=== PATIENT | male | born 1990 | race Caucasian/White ===

== ENCOUNTER 2017-08-27 21:16 | Observation (INO) | payer OTHER ==
[~2017-08-27] VITALS: Ht 188 cm; Wt 83.9 kg
[2017-08-27 21:27] VITALS: BP 134/79; PULSE 117; RESP 12; O2SAT 99
[2017-08-27] MEDS ORDERED: SODIUM CHLOR 0.9% 1000 ML INJ 1,000 ML IV ONE ×2 (21:45→22:45)
[2017-08-27] MEDS ORDERED: TETANUS/DIPHTHERIA TOXOID ADULT 0.5 ML VIAL IM ONE (22:15)
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
--- NOTE | 2017-08-27 22:57 | PD ---
Physical Exam Time Seen by Provider: 22:55 Narrative I was asked to repair the lower lip laceration. Data Data Last Documented VS Vital Signs Date Time Temp Pulse Resp B/P (MAP) Pulse Ox O2 Delivery O2 Flow Rate FiO2 08/27/17 21:30 99 Room Air 08/27/17 21:27 117 12 134/79 (97) Orders Orders Ct Brain W/O Iv Contrast(Rout) (08/27/17 ) Ct Cerv Spine W/O Contrast (08/27/17 ) Ct Facial Bones W/O Iv Cont (08/27/17 ) Complete Blood Count With Diff (08/27/17 21:41) Comprehensive Metabolic Panel (08/27/17 21:41) Troponin I (08/27/17 21:41) Chest, Single Ap (08/27/17 ) Pelvis, Ap Only (Routine) (08/27/17 ) Alcohol (Ethanol) (08/27/17 21:41) Drug Screen, Random Urine (08/27/17 21:41) Sodium Chlor 0.9% 1000 Ml Inj (Ns 1000 M (08/27/17 21:45) Tetanus/Diphtheria Tox Adult (Tetanus/Di (08/27/17 22:15) Sodium Chlor 0.9% 1000 Ml Inj (Ns 1000 M (08/27/17 22:45) MDM Supervised Visit with YAMILETH: No Narrative Course I was asked to repair the lower lip laceration. See my procedure note for laceration repair. Procedures Procedure Narrative LACERATION LOCATION: Mid/right lower lip LENGTH: One and half centimeters NUMBER OF STITCHES/ARLEN: 4 simple interrupted sutures REPAIR: The area of the laceration was prepped with Betadine and sterilely draped. The laceration was infiltrated with 1% lidocaine. The wound was copiously irrigated and explored without evidence of foreign body, tendon injury or neurovascular injury. The wound was closed using 5-0 Vicryl. This was a single layer repair. A sterile dressing was applied. The patient was advised to keep the dressing clean and dry. Patient tolerated the procedure well. Scripts No Active Prescriptions or Reported Meds April Gutierrez Aug 27, 2017 22:57
[2017-08-27 23:19] LABS: AUTOMATED NEUTROPHIL # 12.5 TH/MM3 (1.8-7.7); BASOPHIL % 0.2 % (0.0-2.0); EOSINOPHIL % 0.2 % (0.0-4.0); HEMATOCRIT 46.1 % (39.0-51.0); HEMO FLAGS DIFF FINAL; LYMPH % 19.5 % (9.0-44.0); LYMPHOCYTE # 3.3 TH/MM3 (1.0-4.8); MEAN CELL VOLUME 92.5 FL (80.0-100.0); MEAN CORPUSCULAR HEMOGLOBIN 31.3 PG (27.0-34.0); MEAN CORPUSCULAR HGB CONC 33.8 % (32.0-36.0); NEUT % 74.1 % (16.0-70.0); PLATELET COUNT 276 TH/MM3 (150-450); RED BLOOD COUNT 4.98 MIL/MM3 (4.50-5.90); RED CELL DISTRIBUTION WIDTH 12.5 % (11.6-17.2); WHITE BLOOD COUNT 16.8 TH/MM3 (4.0-11.0)
[2017-08-27 23:20] LABS: ANION GAP 14 MEQ/L (5-15); AST (GOT) 24 U/L (15-37); BICARBONATE 22.2 MEQ/L (21.0-32.0); BLOOD UREA NITROGEN 15 MG/DL (7-18); CHLORIDE 103 MEQ/L (98-107); GLOMERULAR FILTRATION RATE 75 ML/MIN (>89); POTASSIUM 3.4 MEQ/L (3.5-5.1); SODIUM (NA) 139 MEQ/L (136-145)
[2017-08-27 23:25] LABS: ALCOHOL LESS THAN 3 MG/DL (0-5); ALKALINE PHOSPHATASE 83 U/L (45-117); ALT (GPT) 26 U/L (12-78); TOTAL BILIRUBIN ADULT 0.5 MG/DL (0.2-1.0)
[2017-08-27] MEDS ORDERED: DILTIAZEM HCL 25 MG/5 ML VIAL IV PUSH ONE (23:30)
[2017-08-28] VITALS (7 sets, daily range): BP systolic 103–125; BP diastolic 53–73; PULSE 68–115; RESP 15–18; TEMP 97.7–98.5; O2SAT 98–100
[2017-08-28] MEDS ORDERED: DILTIAZEM HCL 25 MG/5 ML VIAL IV PUSH PRN (01:15)
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
[2017-08-28] MEDS ORDERED: SODIUM CHLOR 0.9% 1000 ML INJ 1,000 ML IV SCH (01:59)
[2017-08-28] MEDS ORDERED: MAGNESIUM HYDROXIDE SUSP 30 ML CUP PO PRN (02:00)
[2017-08-28] MEDS ORDERED: BISACODYL 10 MG SUPP RECTAL PRN (02:00)
[2017-08-28] MEDS ORDERED: METOPROLOL TARTRATE 25 MG TAB PO ONE (02:00)
[2017-08-28] MEDS ORDERED: MORPHINE SULFATE 4 MG/ML INJ IV PUSH PRN (02:00)
[2017-08-28] MEDS ORDERED: ACETAMINOPHEN/HYDROcodone 325 MG/5 MG TAB PO PRN (02:00)
[2017-08-28] MEDS ORDERED: SODIUM CHLORIDE 0.9% FLUSH 10 ML FLUSH IV FLUSH PRN (02:00)
[2017-08-28] MEDS ORDERED: SENNOSIDES 8.6 MG TAB PO PRN (02:00)
[2017-08-28] MEDS ORDERED: ONDANSETRON HCL 4 MG/2 ML VIAL IVP PRN (02:00)
[2017-08-28] MEDS ORDERED: ACETAMINOPHEN 325 MG TAB PO PRN (02:00)
[2017-08-28] MEDS ORDERED: LACTULOSE SYRUP 20 GM/30 ML CUP PO PRN (02:00)
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
[2017-08-28] MEDS: POTASSIUM CHLORIDE 20 MEQ CONTROLLED RELEASE TAB PO ONE ×2 (03:17→03:23)
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
[2017-08-28 08:21] LABS: AUTOMATED NEUTROPHIL # 9.1 TH/MM3 (1.8-7.7); BASOPHIL % 0.3 % (0.0-2.0); HEMATOCRIT 45.5 % (39.0-51.0); HEMO FLAGS DIFF FINAL; LYMPH % 23.8 % (9.0-44.0); LYMPHOCYTE # 3.1 TH/MM3 (1.0-4.8); MEAN CORPUSCULAR HGB CONC 34.4 % (32.0-36.0); MONO % 6.5 % (0.0-8.0); NEUT % 69.4 % (16.0-70.0); PLATELET COUNT 246 TH/MM3 (150-450); RED BLOOD COUNT 4.89 MIL/MM3 (4.50-5.90); RED CELL DISTRIBUTION WIDTH 12.3 % (11.6-17.2); WHITE BLOOD COUNT 13.2 TH/MM3 (4.0-11.0)
[2017-08-28 08:33] LABS: ANION GAP 7 MEQ/L (5-15); AST (GOT) 25 U/L (15-37); BICARBONATE 25.3 MEQ/L (21.0-32.0); BLOOD UREA NITROGEN 8 MG/DL (7-18); CHLORIDE 106 MEQ/L (98-107); GLOMERULAR FILTRATION RATE 107 ML/MIN (>89); POTASSIUM 4.1 MEQ/L (3.5-5.1); SODIUM (NA) 138 MEQ/L (136-145)
[2017-08-28 08:35] LABS: ALT (GPT) 24 U/L (12-78)
[2017-08-28 08:44] LABS: ALKALINE PHOSPHATASE 70 U/L (45-117); TOTAL BILIRUBIN ADULT 0.7 MG/DL (0.2-1.0)
[2017-08-28] MEDS ORDERED: DOCUSATE SODIUM 50 MG/SENNA 8.6 MG TAB PO SCH (09:00)
[2017-08-28] MEDS ORDERED: METOPROLOL TARTRATE 25 MG TAB PO SCH (09:00)
[2017-08-28] MEDS ORDERED: SODIUM CHLORIDE 0.9% FLUSH 10 ML FLUSH IV FLUSH SCH (09:00)
--- NOTE | 2017-08-28 14:04 | PD.AMA ---
Against Medical Advice Note Discharge Disposition: Against Medical Advice Pt Condition on Discharge: Guarded AMA Statement Patient Andrey Andrew has decided to leave the hospital against medical advice. This patient has the capacity to refuse care and understands the risks of leaving, including permanent disability and/or , and has had an opportunity to ask questions about his condition. The patient has been informed that he may return for care at any time, and follow up has been arranged/ advised. Tristan Marcano MD Aug 28, 2017 14:04
--- NOTE | 2017-08-28 14:41 | EKG ---
Date Performed: 08/28/2017 Time Performed: 00:47:24 PTAGE: 26 years EKG: ATRIAL FIBRILLATION WITH RAPID VENTRICULAR RESPONSE ABNORMAL RHYTHM ECG PREVIOUS TRACING : 08/27/2017 21.30 Compared to prior tracing no significant change DOCTOR: Thom Oro Interpretating Date/Time 08/28/2017 14:39:57
--- NOTE | 2017-08-28 14:52 | EKG ---
Date Performed: 08/27/2017 Time Performed: 21:30:09 PTAGE: 26 years EKG: ATRIAL FLUTTER/TACHYCARDIA WITH RAPID VENTRICULAR RESPONSE NONSPECIFIC T-WAVE ABNORMALITY A BNORMAL RHYTHM ECG NO PREVIOUS TRACING DOCTOR: Thom Oro Interpretating Date/Time 08/28/2017 14:50:19
== END 2017-08-28 11:30 | disposition left against medical advice (07) ==
LOC: NEPE 21:16 → NEDA 08-28 02:00 → N04B 08-28 03:59
PROVIDERS: ADMIT Internal Medicine; ATTEND Internal Medicine
DX: I48.91 Unspecified atrial fibrillation (principal); S01.511A Laceration without foreign body of lip, initial encounter; S60.512A Abrasion of left hand, initial encounter; E87.6 Hypokalemia; D72.829 Elevated white blood cell count, unspecified; E86.0 Dehydration; V47.5XXA Car driver injured in collision with fixed or stationary object in traffic accident, initial encounter; Y92.410 Unspecified street and highway as the place of occurrence of the external cause; Z23 Encounter for immunization
CPT/HCPCS: 12011; 70450; 70486; 71010; 72125; 72170; 80053; 80307; 84443; 84484; 85025; 90471; 90714; 93005; 96361; 96374; 96376; 99285; G0378; J7030